=== PATIENT | female | born 1975 | race Hispanic/Latino ===

== ENCOUNTER 2017-11-20 14:29 | Inpatient (IN) | payer BC ==
[~2017-11-20] VITALS: Ht 167.6 cm; Wt 72.6 kg
[2017-11-20] MEDS ORDERED: SODIUM CHLORIDE 0.9% 1000ML 1,000 ML IV ONE (16:25)
[2017-11-20 17:50] VITALS: BP 105/71
[2017-11-20] MEDS ORDERED: SODIUM CHLORIDE 0.9% 1000ML 1,000 ML IV SCH (19:00)
[2017-11-20 20:18] VITALS: BP 106/66
[2017-11-20] MEDS ORDERED: PEG 3350/NA SULF,BICARB,CL/KCL 4000 ML SOLN PO SCH (21:30)
[2017-11-20 22:27] LABS: BASOPHILS % (AUTO) 0.8 % (0.0-5.0); EOSINOPHILS % (AUTO) 0.7 % (0.0-8.0); LYMPHOCYTES % (AUTO) 21.2 % (21.0-51.0); MEAN CORPUSCULAR HEMOGLOBIN 28.8 pg (27.0-33.0); MEAN CORPUSCULAR HGB CONC 33.9 g/dL (32.0-36.0); MEAN CORPUSCULAR VOLUME 84.9 fL (79-99); MONOCYTES % (AUTO) 6.3 % (3.0-13.0); PLATELET COUNT (AUTO) 261 K/uL (130-400); RED BLOOD CELL COUNT(AUTO) 4.24 MIL/uL (4.00-5.50); RED CELL DISTRIBUTION WIDTH 13.6 % (11.0-15.5); WHITE BLOOD COUNT (AUTO) 8.7 K/uL (4.8-10.8)
[2017-11-20 22:38] LABS: CREATININE 0.6 mg/dL (0.5-1.5); POTASSIUM 3.4 mmol/L (3.5-5.1)
[2017-11-20 23:54] VITALS: BP 98/68
[2017-11-21 04:51] VITALS: BP 94/55
[2017-11-21 05:09] LABS: HEMATOCRIT 34.3 % (36-48); MEAN CORPUSCULAR HGB CONC 34.3 g/dL (32.0-36.0); MEAN CORPUSCULAR VOLUME 84.4 fL (79-99); PLATELET COUNT (AUTO) 262 K/uL (130-400); RED BLOOD CELL COUNT(AUTO) 4.06 MIL/uL (4.00-5.50); RED CELL DISTRIBUTION WIDTH 13.7 % (11.0-15.5); WHITE BLOOD COUNT (AUTO) 7.1 K/uL (4.8-10.8)
[2017-11-21 05:29] LABS: CREATININE 0.6 mg/dL (0.5-1.5); MAGNESIUM 1.8 mg/dL (1.80-2.40); POTASSIUM 3.4 mmol/L (3.5-5.1); THYROID STIMULATING HORMONE 1.6 uIU/mL (0.36-3.74)
[2017-11-21 08:00] VITALS: BP 111/70
[2017-11-21 11:00] VITALS: BP 116/68
[2017-11-21] MEDS ORDERED: MAGNESIUM 2GM PREMIX 50ML 50 ML IV SCH (12:45)
[2017-11-21] MEDS ORDERED: BISA5TAB12 PO (12:50)
[2017-11-21] MEDS ORDERED: POLY17PO4 PO (12:50)
[2017-11-21] MEDS ORDERED: NS-20 MEQ KCL 1000ML 1,000 ML IV SCH (13:00)
[2017-11-21] MEDS ORDERED: POTASSIUM CHLORIDE 20 MEQ ERTAB PO ONE (13:45)
== END 2017-11-21 18:48 | disposition home or self-care (01) | DRG 392 ==
LOC: EDH 14:29 → EDHIP 16:53 → 4BH 17:31
PROVIDERS: ADMIT Hospitalist; ATTEND Hospitalist
DX: K59.09 Other constipation (principal); E87.6 Hypokalemia; Z80.3 Family history of malignant neoplasm of breast; Z80.0 Family history of malignant neoplasm of digestive organs; Z28.21 Immunization not carried out because of patient refusal
CPT/HCPCS: 36415; 74018; 80048; 83735; 84443; 85025; 85027; J3475; J3480; J7030

== ENCOUNTER 2018-11-22 20:32 | Emergency (ER) | payer BC ==
[~2018-11-22 20:32] MED LIST: BISA5TAB12 PO; POLY17PO4 PO
[2018-11-22] MEDS ORDERED: TETRACAINE HCL 0.5% 4 ML OPHTH SOLN ONE (21:25)
[2018-11-22] MEDS ORDERED: FLUORESCEIN SODIUM 1 STRIP STRIP ONE (21:25)
== END 2018-11-22 21:57 | disposition home or self-care (01) ==
LOC: EDH 20:32
DX: S05.02XA Injury of conjunctiva and corneal abrasion without foreign body, left eye, initial encounter (principal); X58.XXXA Exposure to other specified factors, initial encounter; Y93.89 Activity, other specified; Y92.89 Other specified places as the place of occurrence of the external cause; Y99.8 Other external cause status